=== PATIENT | female | born 1985 | race Caucasian/White ===

== ENCOUNTER 2021-02-28 14:00 | Outpatient (RCR) | payer MEDICARE, MEDICAID, SELFPAY | END 2021-11-05 11:23 | disposition home or self-care (01) | LOC: HO.PTCHIC 14:00 | PROVIDERS: PCP Internal Medicine; Visit Provider Family Medicine | DX: M79.672 Pain in left foot (principal) | CPT/HCPCS: 97110; 97140; 97162 ==

== ENCOUNTER 2021-09-05 12:24 | Outpatient (RCR) | payer OTHER, MEDICARE, MEDICAID, SELFPAY ==
--- NOTE | 2021-09-05 13:54 | MHC.PT.EP ---
[facility] [place] Office [place] [facility] [place] [facility] [address] [phone] F: [phone] F: [phone] F: [phone] F: [phone] Physical Therapy Plan of Care Date of Evaluation: Date of Surgery: n/a Diagnosis: cervicalgia and low back pain Assessment: Patient is a 36 year old R handed female who presents with s/s consistent with cervicalgia and low back pain. 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 Patient past medical history is fairly unremarkable. Current impairments include pain, posture, ROM, strength, activity tolerance and functional mobility. Functional limitations include decreased ability to sleep, lift, carry, turn, bend, and drive. She recently started with headaches in the last week as well. Patient is motivated with good rehab potential. Skilled PT will address impairments and functional limitations in order to achieve goals. Frequency and Duration: The patient will be seen 2x/week for 5 weeks Short Term Goals: I with hEP - 2 weeks TTP absent in thoracic spine - 3 weeks Improved postural awareness - 3 weeks Machine I Coremaker Goals: NPDI 10% or less - 5 weeks Oswestry 10% or less - 5 weeks pain free return to all ADLs - 5 weeks Treatment Plan: Modalities to reduce pain, spasms and effusion. Manual therapy to restore motion and function. Therapeutic exercise to improve strength and flexibility. Neuromuscular re-education for posture and balance. Therapeutic activities to return to functional activities of daily living. Electronically signed by: Diogenes Mora, PT Please sign and return to therapist. Thank you for your referral.
== END 2022-03-29 13:34 | disposition home or self-care (01) ==
LOC: HO.PTCHIC 12:24
PROVIDERS: PCP Internal Medicine; Visit Provider Internal Medicine
DX: M54.2 Cervicalgia (principal)
CPT/HCPCS: 97110; 97161

== ENCOUNTER → 2022-10-10 08:59 | Outpatient (REF) | payer MEDICARE, MEDICAID, SELFPAY ==
--- NOTE | 2022-10-10 | CA_ITS ---
Acquisition Time: 2022-10-10 09:26:12 Total Exercise Time: 00:05:18 Test Indications: CHEST PAIN Medications: Protocol: OREN Max HR: 144 BPM 79% of Pred: 181 BPM Max BP: 162/064 mmHG Max Work Load: 7.0 METS Exercise stress test 5 min 18 sec of Oren protocol achieving 79% MPHR, with 3/10 left chest discomfort baseline 4/10 recovery. 4/10 mid chest discofmort with exercise, mild SOB, with 3 beat non-conditive PAC vs Wenkebach in stage 1, with normotensive response to exercise, non-diagnostic EKG, however no ischemia noted with achieved workload. All chest discomforts resolved in recovery. Test reviewed with Kendrick Hirsch. Call placed to PCP office, report given and recommendation for stress echocardiogram and holter monitor for further evaluation. Referred By: Romel Guardado Overread By: ABRAHAM FONSECA
== END ==
LOC: HO.CARD 08:59
PROVIDERS: PCP Internal Medicine; Visit Provider Internal Medicine
DX: R07.89 Other chest pain (principal)
CPT/HCPCS: 93017

== ENCOUNTER → 2022-10-31 10:34 | Outpatient (REF) | payer MEDICARE, MEDICAID, SELFPAY ==
--- NOTE | 2022-10-31 10:41 | CA_ITS ---
Acquisition Time: 2022-10-31 11:09:17 Total Exercise Time: 00:07:31 Test Indications: CHEST PAIN Medications: Protocol: LASHELL Max HR: 164 BPM 90% of Pred: 181 BPM Max BP: 144/068 mmHG Max Work Load: 9.3 METS Exercise stress test with exercise 7 min 31 sec of Lashell protocol, achieving 91% MPHR with mild SOB, 4/10 chest discomfort during exercise which resolved in recovery, with occational PVC and ttwo dropped QRS in Wenckebach pattern stage 1, with normotensive response to exercise, without EKG changes. Echo images obtained by [employer]([facility]) at rest and immediately post peak exercise. Definity contrast used. Test reviewed with Dr. Marks. Referred By: Romel Guardado Overread By: ABRAHAM FONSECA
== END ==
LOC: HO.CARD 10:34
PROVIDERS: PCP Internal Medicine; Visit Provider Internal Medicine
DX: R07.89 Other chest pain (principal)
CPT/HCPCS: 93350; Q9957

== ENCOUNTER → 2022-11-07 08:04 | Outpatient (REF) | payer MEDICARE, MEDICAID, SELFPAY ==
--- NOTE | 2022-11-07 08:12 | HM_ITS ---
* Total monitoring time 3 days. * Underlying rhythm is sinus. Average ventricular rate 71/Min. Range 44 to 162/Min. About 10% of the time, rate > 100/Min; sinus tachycardia. * Very rare supraventricular and ventricular ectopy with minimal burden. * Mobitz type 1 second-degree heart block noted but with well-preserved ventricular rate. Episodes seen during daytime and sleep hours. * Patient markers used in association with sinus rhythm. * Diary events mentioned include chest pain, fast beating, pressure unexplained by Holter findings. MTDD
== END ==
LOC: HO.CARD 08:04
PROVIDERS: Visit Provider Internal Medicine
DX: R07.89 Other chest pain (principal)
CPT/HCPCS: 93242

== ENCOUNTER 2024-02-10 18:27 | Outpatient (REF) | payer MEDICARE, MEDICAID, SELFPAY | END 2024-02-10 18:28 | disposition home or self-care (01) | LOC: HO.CHCLNP 18:27 | PROVIDERS: Visit Provider Internal Medicine | DX: L73.9 Follicular disorder, unspecified (principal) | CPT/HCPCS: 87070; 87147; 87205 ==

== ENCOUNTER 2024-03-26 17:24 | Emergency (ER) | payer MEDICARE, MEDICAID, SELFPAY ==
[2024-03-26 17:38] VITALS: BP 114/62; PULSE 71; RESP 18; TEMP 36.6; O2SAT 97; BMI 27.6
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
[2024-03-26] MEDS: Cyclobenzaprine HCl 10 MG TABLET PO (19:57)
[2024-03-26 20:10] VITALS: BP 114/62; PULSE 71; RESP 18; TEMP 36.6; O2SAT 97
== END 2024-03-26 20:20 | disposition home or self-care (01) ==
PROVIDERS: Emergency Provider Internal Medicine; PCP Internal Medicine
DX: Z04.1 Encounter for examination and observation following transport accident (principal); R51.9 Headache, unspecified; M54.6 Pain in thoracic spine
CPT/HCPCS: 99283